=== PATIENT | female | born 2000 | race Two or more races ===

== ENCOUNTER 2019-07-20 19:52 | Emergency (ER) | payer OTHER ==
[~2019-07-20] VITALS: Ht 162.6 cm; Wt 91.2 kg
[2019-07-20 20:00] VITALS: BP 117/75
--- NOTE | 2019-07-20 20:00 | NUR ---
ED Nurse Note: Pt walked into ED from work for c/o L knee pain s/p fall. pt states she was walking at work when she slipped due to water on the floor and fell landing on L knee. pt is aaox4, no acute distress noted.
[2019-07-20] MEDS ORDERED: HYDROcodone/Acetamin 5/325 tab ORAL ONE (20:45)
[2019-07-20] MEDS ORDERED: IBUPROFEN600 MG ORAL (21:14)
--- NOTE | 2019-07-20 21:14 | Emergency Room Report ---
History of Present Illness General Chief Complaint: Multiple Trauma/Fall Source: Patient Present Illness HPI 19 YO Female presents to the ED c/o 01/08 in severity left knee pain s/p mechanical slip and fall on liquid at work today. Pt. denies hitting her head or having LOC. She denies midline neck or back pain. She denies previous injury to the extremity. She reports pain is exacerbated up on weight bearing and ambulation. She denies bruises, open wounds or bleeding. 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 Denies numbness tingling or loss of sensation or gross motor movements of the extremities, incontinence of bowel or bladder. Denies CP, Palpitations, LOC, AMS, dizziness, Changes in Vision, weakness or a sudden severe headache. Allergies: Coded Allergies: No Known Allergies (Unverified , 07/20/19) Patient History Past Medical History: see triage record Past Surgical History: none Pertinent Family History: none Last Menstrual Period: 07/02/19 Now: No : 1 Para: 0 Reviewed Nursing Documentation: PMH: Agreed; PSxH: Agreed Nursing Documentation-PMH Past Medical History: No History, Except For Hx Cardiac Problems: No - hypercholesterol Review of Systems All Other Systems: negative except mentioned in HPI Physical Exam Vital Signs Date Time Temp Pulse Resp B/P (MAP) Pulse Ox O2 Delivery O2 Flow Rate FiO2 07/20/19 20:02 97.3 87 16 117/75 (89) 97 Room Air Sp02 EP Interpretation: reviewed, normal General Appearance: no apparent distress, alert, GCS 15, non-toxic Head: normocephalic, atraumatic Eyes: bilateral eye normal inspection, bilateral eye PERRL ENT: hearing grossly normal, normal voice Neck: full range of motion Respiratory: lungs clear, normal breath sounds, speaking full sentences Cardiovascular #1: regular rate, rhythm, normal capillary refill Cardiovascular #2: 2+ dorsalis pedis (L) Musculoskeletal: back normal, normal range of motion, gait/station normal, tender - anterior left knee, other - TTP to Anterior left knee , no obvious swelling, echymosis, or deformity noted. there is no increased laxity to a valgus or varus stress. anterior and posterior drawer sign is negative. Neurologic: alert, motor strength/tone normal, oriented x3, sensory intact, responsive, speech normal Psychiatric: judgement/insight normal Lymphatic: no adenopathy Medical Decision Making PA Attestation Dr. Faulkner is my supervising Physician whom patient management has been discussed with. Diagnostic Impression: Primary Impression: Sprain of left knee Qualified Codes: S83.92XA - Sprain of unspecified site of left knee, initial encounter Additional Impression: Contusion of knee, left Qualified Codes: S80.02XA - Contusion of left knee, initial encounter ER Course 19 YO Female presents to the ED c/o 01/08 in severity left knee pain s/p mechanical slip and fall on liquid at work today. Pt. denies hitting her head or having LOC. She denies midline neck or back pain. She denies previous injury to the extremity. She reports pain is exacerbated up on weight bearing and ambulation. She denies bruises, open wounds or bleeding. 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 Denies numbness tingling or loss of sensation or gross motor movements of the extremities, incontinence of bowel or bladder. Denies CP, Palpitations, LOC, AMS, dizziness, Changes in Vision, weakness or a sudden severe headache. Ddx considered but are not limited to Fracture, dislocation, contusion, meniscal injury, ligamental injury, Sprain/Strain/Spasm Vital signs: are WNL, pt. is afebrile H&PE are most consistent with left knee sprain ORDERS: X-ray Left knee complete 3 views - negative for fx, Dislocation, or significant soft tissue injury ED INTERVENTIONS: -[place] PO 5mg - Monty wrap applied to the left knee by soil technologist. -Patient is provided with crutches and instructed on their use -I do not identify an emergent condition at this time. With current presentation , pt. is stable for close outpatient follow up and conservative treatment. D/ w pt. to return promptly to ED with worsening or new symptoms.- Pt. verbalizes' understanding and agreement with proposed treatment plan. DISCHARGE: At this time pt. is stable for d/c to home. Will provide printed patient care instructions, and any necessary prescriptions. Care plan and follow up instructions have been discussed with the patient prior to discharge. Other X-Ray Diagnostic Results Other X-Ray Diagnostic Results : X-Ray ordered: Left knee # of Views/Limited Vs Complete: 3 View Indication: Pain EP Interpretation: Yes MOIRA Xray: Interpretation reviewed, by supervising MD, and agrees with findings. Interpretation: no dislocation, no soft tissue swelling, no fractures Impression: No acute disease Electronically Signed by: Trudy Yap pA-C Last Vital Signs Date Time Temp Pulse Resp B/P (MAP) Pulse Ox O2 Delivery O2 Flow Rate FiO2 07/20/19 20:02 97.3 87 16 117/75 (89) 97 Room Air Status: improved Disposition: HOME, SELF-CARE Condition: Stable Departure Forms: Return to Work Return to Work Date: Jul 24, 2019 Work Restrictions: No Heavy Lifting, No Prolonged Standing Other Restrictions: light duty, allow use of crutches. May return Sooner if Symptoms improve. Return to Full Activity: Jul 27, 2019 Patient Instructions: Contusion, [id number], Knee Sprain, [id number] Additional Instructions: Take medications as directed. Follow up with an VINYL DIPPER in 3-5 days, even if your symptoms have resolved. If symptoms persist MRI may be required at the discretion of your PCP or Ortho Specialist. --Please review list of primary care clinics, if you do not already have a primary care provider who can give you an Orthopedic Referral. Return sooner to ED if new symptoms occur, or current symptoms become worse. Do not drink alcohol, drive, or operate heavy machinery while taking [place] as this may cause drowsiness. - Please note that this Emergency Department Report was dictated using [employer] interpreter technology software, occasionally this can lead to erroneous entry secondary to interpretation by the dictation equipment. Trudy Yap Jul 20, 2019 21:14
[2019-07-20 21:25] VITALS: BP 120/68
--- NOTE | 2019-07-20 21:25 | NUR ---
ER DISCHARGE NOTE: Patient is cleared to be discharged per ERMD, pt is aox4, on room air, with stable vital signs. pt was given dc and prescription instructions, pt was able to verbalize understanding, pt id band removed. pt is able to ambulate with crutches. pt took all belongings.
--- NOTE | 2019-07-21 09:22 | Diagnostic Imaging Report ---
Indication: Left knee pain Technique: 3 views of the left knee Comparison: None Findings: No acute fractures. No dislocations. The joint spaces are preserved Impression: Negative
== END 2019-07-20 21:25 | disposition home or self-care (01) ==
LOC: EMR 21:00
DX: S83.92XA Sprain of unspecified site of left knee, initial encounter (principal); S80.02XA Contusion of left knee, initial encounter; E78.00 Pure hypercholesterolemia, unspecified; W01.0XXA Fall on same level from slipping, tripping and stumbling without subsequent striking against object, initial encounter; Y93.9 Activity, unspecified; Y92.9 Unspecified place or not applicable
CPT/HCPCS: 99283

== ENCOUNTER 2019-11-06 19:50 | Emergency (ER) | payer OTHER ==
[~2019-11-06] VITALS: Ht 162.6 cm; Wt 95.3 kg
[~2019-11-06 19:50] MED LIST: IBUPROFEN600 MG ORAL
[2019-11-06 20:09] VITALS: BP 123/76
--- NOTE | 2019-11-06 20:10 | NUR ---
Nurse Note: Pt walked in c/o dry cough for 4 days with green mucus. Pt stated chest pain and increasing shortness of breath when coughing. Pt stated cough is worse at night time; denies recent travels; have been socal distancing.
--- NOTE | 2019-11-06 20:48 | Emergency Room Report ---
History of Present Illness General Chief Complaint: Upper Respiratory Illness Source: Patient Present Illness HPI Patient presents with complaints of cough congestion Reports phlegm production Patient reports that her physician is not available and therefore presents to the emergency room reports that she usually gets Phenergan with codeine that helps her sleep with the cough Denies any chest pain denies any vomiting or diarrhea patient reports that she was recently covid-19 tested and was negative Denies any neck pain or photophobia denies any dysuria Allergies: Coded Allergies: DEXTROMETHORPHAN (Verified Allergy, Unknown, 11/06/19) COVID-19 Screening Contact w/high risk pt: No Recent Travel to affected area: No Experienced COVID-19 symptoms?: Yes COVID-19 symptoms experienced: Shortness of Breath, Cough COVID-19 Testing performed 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 Patient History Past Medical History: see triage record Reviewed Nursing Documentation: PMH: Agreed; PSxH: Agreed Nursing Documentation-PMH Hx Cardiac Problems: No - hypercholesterol Review of Systems All Other Systems: negative except mentioned in HPI Physical Exam Vital Signs Date Time Temp Pulse Resp B/P (MAP) Pulse Ox O2 Delivery O2 Flow Rate FiO2 11/06/19 19:56 98.2 92 16 123/76 (92) 97 Room Air Sp02 EP Interpretation: reviewed, normal General Appearance: well appearing, no apparent distress Head: normocephalic, atraumatic Eyes: bilateral eye PERRL, bilateral eye EOMI ENT: hearing grossly normal, normal pharynx, TMs + canals normal, uvula midline Neck: full range of motion, supple, no meningismus, no bony tend Respiratory: no respiratory distress, no retraction, no accessory muscle use Cardiovascular #1: normal peripheral pulses, regular rate, rhythm, no edema, no gallop, no JVD, no murmur Gastrointestinal: normal bowel sounds, non tender, soft, no mass, no organomegaly, non-distended, no guarding, no hernia, no pulsatile mass, no rebound Genitourinary: no CVA tenderness Musculoskeletal: back normal Neurologic: motor strength/tone normal, manufacturing millwright III-XII nml as tested, oriented x3 , sensory intact, responsive Psychiatric: mood/affect normal Skin: no rash Lymphatic: normal inspection, no adenopathy Medical Decision Making Diagnostic Impression: Primary Impression: Upper respiratory infection Additional Impression: Cough ER Course Multiple differentials including but not limited to pneumonia, bronchitis, covid -19 entertained patient reports that the cough is worse at nighttime I did also discuss with her regarding reflux Patient reports that she is getting all these checked out X-ray does not show any acute process I did discuss that Phenergan with codeine is not appropriate medications for this process patient is given And antitussives medication and requires improved outpatient follow-up Chest X-Ray Diagnostic Results Chest X-Ray Diagnostic Results : Chest X-Ray Ordered: Yes # of Views/Limited/Complete: 1 View Indication: Shortness of Breath EP Interpretation: Yes Interpretation: no consolidation, no effusion, no pneumothorax Impression: No acute disease Electronically Signed by: Shannon Oconnell DO Last Vital Signs Date Time Temp Pulse Resp B/P (MAP) Pulse Ox O2 Delivery O2 Flow Rate FiO2 11/06/19 20:09 98.2 92 16 123/76 97 Room Air Status: improved Disposition: HOME, SELF-CARE Condition: Improved Scripts Promethazine Hcl (PROMETHAZINE HCL*) 6.25 Mg/5 Ml Syrup 5 ML ORAL Q8H for 5 Days, #120 ML 0 Refills Prov: Shannon Oconnell DO 11/06/19 Albuterol Sulfate* (ALBUTEROL SULFATE HHN*) 2.5 Mg/3 Ml Vial.neb 2.5 MG HHN Q4H PRN for Shortness of Breath, #25 VIAL Prov: Shannon Oconnell DO 11/06/19 Additional Instructions: Patient is provided with the discharge instructions notified to follow up with primary doctor in the next 2-3 days otherwise return to the er with any worsening symptoms. Please note that this report is being documented using [employer] technology. This can lead to erroneous entry secondary to incorrect interpretation by the dictating instrument. Shannon Oconnell DO Nov 06, 2019 20:48
[2019-11-06] MEDS ORDERED: PROMETHAZI6.25 MG/1 ORAL (20:49)
[2019-11-06] MEDS ORDERED: ALBUTEROL2.5 MG/3 M HHN (20:49)
--- NOTE | 2019-11-06 21:10 | Diagnostic Imaging Report ---
INDICATION: Cough COMPARISON: None FINDINGS: Single frontal view demonstrates a normal cardiomediastinal silhouette. The lungs are clear. No pleural effusions. The visualized osseous structures are within normal limits. IMPRESSION: No acute cardiopulmonary disease.
[2019-11-06 21:15] VITALS: BP 123/76
--- NOTE | 2019-11-06 21:15 | NUR ---
ER DISCHARGE NOTE: Patient is cleared to be discharged per ERMD. Pt was given dc and prescription instructions; pt understood teaching with verbalization. Pt is aox4, on room air, with stable vital signs. Pt id band removed without complications. Pt is able to ambulate with steady gait. Pt took all belongings.
== END 2019-11-06 21:15 | disposition home or self-care (01) ==
LOC: EMR 21:11
DX: J06.9 Acute upper respiratory infection, unspecified (principal); R05 Cough; Z88.8 Allergy status to other drugs, medicaments and biological substances; E78.00 Pure hypercholesterolemia, unspecified; R06.02 Shortness of breath
CPT/HCPCS: 71045; Z7502; 99283